=== PATIENT | female | born 1975 | race Caucasian/White ===

== ENCOUNTER 2022-07-22 18:47 | Emergency (ER) | payer BC, SELFPAY ==
--- NOTE | ~2022-07-22 | XR_ITS ---
EXAMINATION: XR ANKLE, LEFT CLINICAL INFORMATION: Trauma COMPARISON: None available. TECHNIQUE: AP, lateral, and mortise views of the left ankle. FINDINGS: No fracture. Alignment is anatomic. Joint spaces are maintained. Small marginal osteophytes along the dorsal naviculocuneiform articulation. Tiny ossific density dorsal to the talonavicular articulation, likely degenerative in nature. No joint effusion. XR/XR ankle LT 2V IMPRESSION: No acute fracture or dislocation.
--- NOTE | ~2022-07-22 | XR_ITS ---
EXAMINATION: XR KNEE, LEFT CLINICAL INFORMATION: Pain COMPARISON: None available. TECHNIQUE: Four views of the left knee. FINDINGS: Bones and soft tissues are normal. No fracture. Moderate joint effusion. Alignment is anatomic. Joint spaces are well maintained. No abnormal soft tissue calcification. XR/XR knee LT 3V IMPRESSION: * No acute fracture or dislocation. * Moderate joint effusion.
[2022-07-22 18:57] VITALS: BP 137/81; PULSE 89; RESP 18; TEMP 36.6; O2SAT 98; BMI 26.6
[2022-07-22] MEDS: Ibuprofen 600 MG TABLET PO (19:04)
--- NOTE | 2022-07-22 19:28 | ED_ITS ---
HPI - Extremity Injury (Lower) General Chief Complaint: Extremity Injury, Lower Stated Complaint: Left knee gave out can not walk correctly Time Seen by Provider: 07/22/22 19:11 Source: patient Mode of arrival: ambulatory Limitations: no limitations History of Present Illness HPI Narrative: 47-year-old female presents for evaluation of left knee pain that started today, patient was doing yd work outside, when she got up she felt like her left knee popped out of place, this caused her to fall onto the ground, did not hit her head, no loss of consciousness, not on blood thinners. Since then has been having severe pain to left knee and feels like she cannot bear weight to the left knee she says the majority of the pain is on the back of the knee and it goes down her leg, reports 10/10 worse with movement better at rest. Denies numbness and tingling, this is never happened to her before. No previous issues with left knee. Denies fevers and chills. Related Data Previous Rx's Medication Instructions Recorded ketorolac 10 mg tablet 10 mg PO TID PRN pain 5 days #15 07/22/22 tabs Allergies Allergy/AdvReac Type Severity Reaction Status Date / Time penicillin V Allergy Unknown Swelling Verified 07/22/22 19:01 Penicillins [PENICILLINS] Allergy Unknown SWELLING Verified 07/22/22 19:01 AND MANDIE Review of Systems Review of Systems: Constitutional : No Weight loss, No Fever, No Chills, No Fatigue, No Malaise ENT/Mouth : No sore throat, No Rhinorrhea Eyes: No Eye Pain, No Swelling, No Redness Cardiovascular : No Chest Pain, No SOB, No Dyspnea on Exertion, No Orthopnea, No Edema, No Palpitations Respiratory : No Cough, No Sputum, No Wheezing Gastrointestinal : No Nausea, No Vomiting, No Diarrhea, No Constipation, No abdominal Pain, No Hematochezia, No Melena Genitourinary : No Dysuria, No Urinary Frequency, No Hematuria, Musculoskeletal : + joint pain, No Myalgias, + Joint Swelling Skin : No Skin Lesions, No rash Neuro : No Weakness, No Numbness, No Dizziness, No Headache Psych : No Anxiety/Panic, No Depression All other systems reviewed and are negative Yes all other systems are reviewed and are negative PMFSH Past Medical History Attestation statement: The following information was validated with the patient. Source: old records reviewed and nursing notes reviewed Social History Social History Advance Directives: No Advance Directives Information Provided: Yes Physical Exam Vital Signs: Vital Signs: Last Vital Signs Temp 98.2 F 07/22/22 21:21 Pulse 78 07/22/22 21:21 Resp 18 07/22/22 21:21 BP 135/84 07/22/22 21:21 Pulse Ox 97 07/22/22 21:21 O2 Del Method Room Air 07/22/22 21:21 BMI result Body Mass Index 26.6 vss Appearance: Alert.? Oriented X3.? No acute distress.? Head: Normocephalic, atraumatic, no step-offs or deformities Eyes: Pupils equal, round and reactive to light.? ENT: Pharynx normal.? Neck: Normal inspection.? Neck supple.? CVS: Normal heart rate and rhythm.? Pulses normal.? Respiratory: No respiratory distress.? Breath sounds normal.? Abdomen: Soft and nontender.? Skin: Skin warm and dry.? Normal skin color.? Normal skin turgor.? Extremities: No lower extremity edema.? No calf ttp. 5/5 strength to bilateral upper and lower extremities 2+ patellar, dorsalis pedis, anterior tibialis and posterior tibialis pulses equal bilateral normal capillary refill to bilateral lower extremities, normal sensation to lower extremities bilaterally, no foot drop bilaterally, there is pain with palpation of left posterior aspect of knee and discomfort with varus, Negative anterior posterior drawer. Slight effusion appreciated overlying left knee. Normal right knee. Back: No midline tenderness, no C-spine tenderness, full range of motion, no CVA tenderness bilaterally Neuro: Oriented X 3.? No motor deficit.? No sensory deficit. CN 2-12 intact Course Reevaluation(s) Reevaluation #1: Patient also mentions she is having slight discomfort to the medial aspect of left ankle, no pain with palpation, negative anterior posterior drawer, no foot drop. Normal examination will obtain imaging. Time: 19:53 Reevaluation #2: Patient reports improvement symptoms after Toradol. Patient's left knee with no acute fractures or dislocations moderate joint effusion, Jesse wrap applied, crutches given. X-ray of ankle with no acute fractures or dislocation. Patient will be discharged home with Toradol advised follow-up with the orthopedic team. Educated patient on diagnosis and treatment plan, answered all question, patient verbalizes understanding. At this time patient will be discharged home, advised to return with new or worsening symptoms. Educated on worrisome signs and symptoms and when to return. At this time I feel comfortable discharge home. Time: 22:23 Medications Administered Discontinued Medications Generic Name Dose Route Start Last Admin Trade Name Miriam PRN Reason Stop Dose Admin Ibuprofen 600 mg 07/22/22 19:01 07/22/22 19:04 Ibuprofen 600 Mg Tablet PO 07/22/22 19:02 600 mg ONCE ONE Administration Ketorolac Tromethamine 30 mg 07/22/22 21:06 07/22/22 21:10 Ketorolac Tromethamine 30 Mg/Ml Vial IM 07/22/22 21:07 30 mg ONCE ONE Administration Medical Decision Making Medical Decision Making [facility] Narrative: 1931 47-year-old female presents for evaluation of left knee pain, feels like her knee was out of place after gardening, fell to the ground however did not her head or lose consciousness. Never happened to her before. Denies numbness and tingling Physical exam significant for No lower extremity edema.? No calf ttp. 5/5 strength to bilateral upper and lower extremities 2+ patellar, dorsalis pedis, anterior tibialis and posterior tibialis pulses equal bilateral normal capillary refill to bilateral lower extremities, normal sensation to lower extremities bilaterally, no foot drop bilaterally, there is pain with palpation of left posterior aspect of knee and discomfort with varus, Negative anterior posterior drawer. Slight effusion appreciated overlying left knee. Normal right knee. Concerns for possible knee effusion and possible ligamentous injury. His could have been a knee dislocation. Unlikely fracture. No signs of threatened limb or neurovascular compromise. Plan imaging, ibuprofen. Will give patient an Jesse wrap and crutches and have her follow-up with the orthopedic team. Differential Diagnosis Differential Diagnoses: The differential diagnosis associated with the presentation includes Concerns for possible knee effusion and possible ligamentous injury. His could have been a knee dislocation. Unlikely fracture. No signs of threatened limb or neurovascular compromise. Admission/Observation Consideration of admission/observation: Escalation of care including admission/observation considered Independent Interpretation I performed an independent interpretation of an: Plain X-Ray Radiology Impression Discussion of test interpretation with radiology: I have reviewed the radiologist's reading. Core Measures AMI core measures followed: Yes Measure exclusions: not indicated Critical Care Time Critical Care Time Critical Care Time: No Discharge Plan Discharge Clinical Impression: Knee pain, left, Ankle pain Patient Disposition: Home, Self-Care Instructions: Knee Pain (ED), Arthralgia (ED), R.I.C.E. Treatment (ED) Additional Instructions: Take your medications as prescribed. If you were prescribed antibiotics today, it is important that you take your medication to their entirety, do not skip any doses, do not finish them early. Follow-up with your primary care provider this week. Return to the emergency department with new or worsening symptoms. Such as fevers, chills, chest pain, shortness of breath, nausea, vomiting, dizziness, headache, vision changes, lethargy In case of emergency call 911 Please follow-up with orthopedics, use crutches as instructed. Toradol has been sent to your pharmacy, you tolerated this well in the department. Please take this as prescribed do not take this with ibuprofen, or other NSAIDs, do not mix this with alcohol. Side effects of this medication including increased risk for bleeding and possible kidney injury. Xray was unremarkable, you will likely require an MRI for evaluation of ligaments and tendons. XR/XR knee LT 3V IMPRESSION: *? No acute fracture or dislocation. *? Moderate joint effusion. XR/XR ankle LT 2V IMPRESSION: No acute fracture or dislocation. Prescriptions: New ketorolac 10 mg tablet 10 mg PO TID PRN (Reason: pain) 5 Days Qty: 15 0RF Referrals: [facility] [Provider Group] - 1 week Physician,Unknown J [Primary Care Provider] - 2 days Stand Alone Forms: Work/School Release
[2022-07-22] MEDS: Ketorolac Tromethamine 30 MG/ML VIAL IM (21:10)
[2022-07-22 21:21] VITALS: BP 135/84; PULSE 78; RESP 18; TEMP 36.8; O2SAT 97
--- NOTE | 2022-07-22 22:48 | MHC.EDTECH ---
Applied Left knee brace and immobilizer, pt tolerated well. Educated patient how to use crutches. Pt demonstrated well. SG
== END 2022-07-22 23:16 | disposition home or self-care (01) ==
PROVIDERS: Emergency Provider Internal Medicine
DX: M25.562 Pain in left knee (principal); M25.572 Pain in left ankle and joints of left foot
CPT/HCPCS: 73562; 73600; 96372; 99283; 99284; J1885